=== PATIENT | female | born 1995 | race African-American/Black ===

== ENCOUNTER 2019-02-07 19:27 | Emergency (ER) | payer SELFPAY ==
[2019-02-07 19:41] VITALS: BP 119/79; PULSE 82; TEMP 98.5; BMI 24.7
[2019-02-07] MEDS ORDERED: ONDANSETRON 4 MG/2 ML VIAL IVPUSH ONE (19:51)
[2019-02-07] MEDS ORDERED: SODIUM CHLORIDE 1,000 ML IV STA (19:51)
--- NOTE | 2019-02-07 19:51 | PDOC ---
Rapid Medical Evaluation Chief Complaint: Pain Time Seen by Provider: 02/07/19 19:50 Medical Evaluation: Allergies Allergy/AdvReac Type Severity Reaction Status Date / Time No Known Allergies Allergy Verified 02/07/19 19:41 Vital Signs Temp Pulse Resp BP Pulse Ox 98.5 F 82 16 119/79 100 02/07/19 19:36 02/07/19 19:36 02/07/19 19:36 02/07/19 19:36 02/07/19 19:36 02/07/19 19:50 I have performed a brief in-person evaluation of this patient. The patient presents with a chief complaint of:abd pain, n/v, seen at [facility] Pertinent physical exam findings: vss, epigastric tenderness I have ordered the following: labs, urine, ivf, zofran The patient will proceed to the ED for further evaluation. Discharge Disposition - Diagnosis Abdominal pain Qualifiers: Abdominal location: periumbilical Qualified Code(s): R10.33 - Periumbilical pain Nausea and vomiting Qualifiers: Vomiting type: unspecified Vomiting Intractability: non-intractable Qualified Code(s): R11.2 - Nausea with vomiting, unspecified - Discharge Dispostion Disposition: HOME Condition at time of disposition: Stable - Prescriptions Prescriptions: Ondansetron [Zofran *Odt*] 4 mg SL TID PRN #21 od.tablet PRN Reason: Nausea And/Or Vomiting - Referrals Referrals: [facility] [place] [place] [Provider Group] Nehemias Brown MD [Staff Physician] - - Patient Instructions Printed Discharge Instructions: DI for Vomiting -- Adult Additional Instructions: You were seen in the Emergency Department for evaluation of abdominal pain with nausea and vomiting. Your labs and imaging were unremarkable. Your symptoms are likely due to a viral illness that will resolve within about a week. Review the handout provided at discharge. Follow up with your primary care provider within a week. Avoid heavily flavored foods and spicy foods. Start with water/gatorade sips and advance as tolerated. If you try to incorporate solids and vomit, go back to liquids and try advancing slowly again over several hours. Return to the Emergency Department if you develop fevers/chills, chest pain, trouble breathing, inability to tolerate fluids, blood in your stool/vomit, worsening pain, worsening symptoms, or any new/concerning symptoms. - Post Discharge Activity
--- NOTE | 2019-02-07 20:07 | PDOC ---
History of Present Illness - General Chief Complaint: Pain Stated Complaint: ABD PAIN, VOMITTING Time Seen by Provider: 02/07/19 19:50 - History of Present Illness Initial Comments: The pt is a 23F w/ a history of asthma who presents for evaluation of 2 days of abdominal pain with associated N/V. The pt reports periumbilical, sharp, intermittent, non-radiating abdominal pain that began gradually. It is associated with nausea and NBNB emesis >10x today. She was evaluated at [facility] yesterday where they performed labs and gave Zofran with initial relief, but her symptoms recurred last night/today. She states that she cannot keep any fluids down at home and has not tried anything for her symptoms at home. Pt denies fevers/chills, chest pain, trouble breathing, dysuria, hematuria, vaginal bleeding/discharge, diarrhea, blood in her stool, or changes in sensation. PMH: Asthma PSH: Denies Meds: Denies Allergies: Denies SH: reports history of EtOH and THC but no recent use 02/07/19 20:50 Past History - Past Medical History Allergies/Adverse Reactions: Allergies Allergy/AdvReac Type Severity Reaction Status Date / Time No Known Allergies Allergy Verified 02/07/19 19:41 Home Medications: Ambulatory Orders Ondansetron [Zofran *Odt*] 4 mg SL TID PRN #21 od.tablet 02/07/19 COPD: No - Psycho Social/Smoking Cessation Hx Smoking History: Never smoked Have you smoked in the past 12 months: No Information on smoking cessation initiated: No Hx Alcohol Use: No Drug/Substance Use Hx: No Review of Systems - Review of Systems Able to Perform ROS?: Yes Comments:: GENERAL/CONSTITUTIONAL: No fever or chills. No weakness HEAD, EYES, EARS, NOSE AND THROAT: No change in vision. No change in hearing. No sore throat CARDIOVASCULAR: No chest pain or shortness of breath RESPIRATORY: Denies cough, hemoptysis GASTROINTESTINAL: +N/V; denies C/D GENITOURINARY: No dysuria, frequency, or change in urination MUSCULOSKELETAL: No joint or muscle swelling or pain. No neck or back pain SKIN: No rash NEUROLOGIC: No headache, vertigo, loss of consciousness, or change in strength/ sensation ENDOCRINE: No increased thirst. No abnormal weight change HEMATOLOGIC/LYMPHATIC: No anemia, easy bleeding, or history of blood clots ALLERGIC/IMMUNOLOGIC: No hives or skin allergy 02/07/19 20:07 Is the patient limited Tajik proficient: No *Physical Exam - Vital Signs Last Vital Signs Temp Pulse Resp BP Pulse Ox 98.5 F 82 16 119/79 100 02/07/19 19:36 02/07/19 19:36 02/07/19 19:36 02/07/19 19:36 02/07/19 19:36 - Physical Exam GENERAL: Awake, alert, and oriented to person/place/time, tearful HEAD: No signs of trauma, normocephalic, atraumatic EYES: PERRLA, EOMI, sclera anicteric, conjunctiva clear ENT: Hearing grossly normal, nares patent, oropharynx clear without exudates. Moist mucosa LUNGS: No distress, speaks in full sentences, clear to auscultation bilaterally HEART: Regular rate and rhythm, normal S1 and S2, no murmurs appreciated, peripheral pulses normal and equal bilaterally ABDOMEN: Soft, nonfocal TTP w/o rebound or guarding; normoactive bowel sounds EXTREMITIES: Normal inspection, Normal range of motion, no edema. No clubbing or cyanosis NEUROLOGICAL: Cranial nerves II through XII grossly intact. Normal speech, no focal sensorimotor deficits SKIN: Warm, Dry 02/07/19 20:07 ED Treatment Course - LABORATORY CBC & Chemistry Diagram: 02/07/19 20:56 02/07/19 20:55 Medical Decision Making - Medical Decision Making The pt is a 23F w/ a history of asthma who presents for evaluation of 2 days of abdominal pain with associated N/V. ED Course CMP, CBC, Lipase, Serum Preg, Mg UDS IVF, Zofran, Ofirmev, Maalox for symptomatic relief 02/07/19 21:00 POCUS RUQ w/o GB sludge/stones, GBW and CBD wnl, no pericholecystic fluid No leukocytosis No anemia 02/07/19 21:33 Lytes unremarkable LFTs unremarkable Lipase wnl 02/07/19 21:41 Serum preg neg 02/07/19 22:33 Utox positive for THC, but denies recent use Pt reports persistent nausea, will give Reglan 10mg IVPB once 02/07/19 23:26 Pt reports feeling improved at this time Will PO challenge Rx for Zofran sent to pt's pharmacy Plan for D/C w/ PCP f/u Discharge instructions and return precautions given Patient in agreement and verbalized understanding Dispo: Home 02/08/19 01:06 Discharge - Discharge Information Problems reviewed: Yes Clinical Impression/Diagnosis: Abdominal pain Qualifiers: Abdominal location: periumbilical Qualified Code(s): R10.33 - Periumbilical pain Nausea and vomiting Qualifiers: Vomiting type: unspecified Vomiting Intractability: non-intractable Qualified Code(s): R11.2 - Nausea with vomiting, unspecified Condition: Stable - Admission No - Additional Discharge Information Prescriptions: Ondansetron [Zofran *Odt*] 4 mg SL TID PRN #21 od.tablet PRN Reason: Nausea And/Or Vomiting - Follow up/Referral Referrals: [facility] [place] [facility] [place] [Provider Group] Nehemias Brown MD [Staff Physician] - - Patient Discharge Instructions Patient Printed Discharge Instructions: DI for Vomiting -- Adult Additional Instructions: You were seen in the Emergency Department for evaluation of abdominal pain with nausea and vomiting. Your labs and imaging were unremarkable. Your symptoms are likely due to a viral illness that will resolve within about a week. Review the handout provided at discharge. Follow up with your primary care provider within a week. Avoid heavily flavored foods and spicy foods. Start with water/gatorade sips and advance as tolerated. If you try to incorporate solids and vomit, go back to liquids and try advancing slowly again over several hours. Return to the Emergency Department if you develop fevers/chills, chest pain, trouble breathing, inability to tolerate fluids, blood in your stool/vomit, worsening pain, worsening symptoms, or any new/concerning symptoms. - Post Discharge Activity
[2019-02-07] MEDS ORDERED: MAG HYDROX/AL HYDROX/SIMETH -MYLANTA- ORAL SUSPENSION PO ONE (20:26)
[2019-02-07] MEDS ORDERED: ACETAMINOPHEN 1000 MG/100 ML VIAL (NON FORMULARY) IVPB ONE (20:26)
[2019-02-07 21:10] LABS: BASO % 1.2 % (0-2.0); EOS % 0.3 % (0-4.5); HEMATOCRIT 40.3 % (32.4-45.2); HEMOGLOBIN 12.9 GM/dL (10.7-15.3); LYMPH % 30.2 % (8-40); MCH 27.3 pg (25.7-33.7); MEAN CELL VOLUME 85.2 fl (80-96); NEUT % 60.3 % (42.8-82.8); RBC 4.73 M/mm3 (3.60-5.2); RDW 14.3 % (11.6-15.6); WHITE BLOOD COUNT 7.1 K/mm3 (4.0-10.0)
[2019-02-07] MEDS ORDERED: FAMOTIDINE 20 MG/50 ML IVPB 20 MG/50 ML MG IVPB ONE ×2 (21:15→21:35)
--- NOTE | 2019-02-07 21:26 | PDOC ---
Documentation entered by Yissel Castro SCRIBE, acting as scribe for Laureen Garcia DO. Laureen Garcia DO: This documentation has been prepared by the rosemarie, Yissel Castro SCRIBE, under my direction and personally reviewed by me in its entirety. I confirm that the documentation accurately reflects all work, treatment, procedures, and medical decision making performed by me. Attending Attestation - Resident Resident Name: Yobany Mills - ED Attending Attestation I have performed the following: I have examined & evaluated the patient, The case was reviewed & discussed with the resident, I agree w/resident's findings & plan, Exceptions are as noted - HPI HPI: 02/07/19 21:12 Patient is a 23 year old female with a significant PMH of asthma who presents to the ED with 2 days of abdominal pain. The pt describes the pain as sharp, intermittent, non-radiating abdominal pain with associated NBNB nausea and vomiting. As per patient, she states having 10 episodes of NBNB vomiting and is able to hold down any fluids. She was evaluated at [facility] yesterday where she was given a full work up and was given Zofran with alleviation of symptoms, but her symptoms recurred last night/today. She denies recent fevers, chills, headache or dizziness. She denies recent nausea, vomiting, diarrhea or constipation. She denies recent dysuria, frequency, urgency or hematuria. She denies recent chest pain or shortness of breath. - Physicial Exam PE: 02/07/19 21:22 Gen: aaox3, nad heart: +s1s2 reg lungs: cta b/l abd: soft, no focal ttp , no rebound or guarding, +bs, no vomiting during exam ext: no c/c/e - Medical Decision Making 02/07/19 21:23 a/p: 23yo female with n/v x 2 days -states over 10 episodes of n/v -pt states no new marijuana use -pt states seen at [facility] yesterday and given antinausea meds but states still with vomitus today -states specks of blood, but feels her throat is raw -denies diarrhea -will send labs, ua -will hydrate, zofran, pepcid, gi cocktail -pt is nontoxic in appearance -no black tarry stool 02/07/19 23:32 pt with marijuana in urine 02/07/19 23:33 labs reviewed pt appears dehydrated on ua, ivf hydration running 02/08/19 00:50 pt tolerated po intake
[2019-02-07 21:27] LABS: MAGNESIUM 2.3 mg/dL (1.8-2.4)
[2019-02-07] MEDS ORDERED: MAG HYDROX/AL HYDROX/SIMETH 30 ML UNIT-DOSE CUP ONE (21:35)
[2019-02-07] MEDS ORDERED: ACETAMINOPHEN INJECTION 100 ML IVPB ONE (21:35)
[2019-02-07] MEDS ORDERED: ONDANSETRON 4 MG/2 ML VIAL ONE (21:35)
[2019-02-07 21:40] LABS: ALBUMIN 4.2 g/dl (3.4-5.0); BILIRUBIN,TOTAL 0.5 mg/dL (0.2-1); BLOOD UREA NITROGEN 11.9 mg/dL (7-18); CALCIUM 9.9 mg/dL (8.5-10.1); CREATININE 0.7 mg/dL (0.55-1.3); POTASSIUM 3.4 mmol/L (3.5-5.1); TOT PROT 8.6 g/dl (6.4-8.2)
[2019-02-07 22:49] LABS: PLATELET ESTIMATE NORMAL
[2019-02-07 22:51] LABS: MEAN PLT VOLUME 9.3 fl (7.5-11.1); PLATELET COUNT 288 K/MM3 (134-434)
[2019-02-07 23:00] LABS: EPI CELLS 7.2 /HPF (0-5/HPF); HYALINE CASTS 16 /lpf (0-8); PH,URINE 8.5 (5.0-8.0); URINE APPEARANCE CLEAR; URINE BACTERIA 69.2 /hpf (NEGATIVE); URINE BILIRUBIN NEGATIVE (NEGATIVE); URINE COLOR DK YELLOW; URINE GLUCOSE (UA) NEGATIVE (NEGATIVE); URINE KETONE 2+ (NEGATIVE); URINE LEUK ESTERASE NEGATIVE (NEGATIVE); URINE NITRITE NEGATIVE (NEGATIVE); URINE PROTEIN 1+ (NEGATIVE); URINE RBC 1 /hpf (0-4); URINE WBC 3 /hpf (0-5)
[2019-02-07 23:09] LABS: COCAINE, UR NEGATIVE ng/ml (CUTOFF=300); METHADONE, UR NEGATIVE ng/ml (CUTOFF=300); OPIATES, URI NEGATIVE ng/ml (CUTOFF=300); PHENCYCLIDINE,URINE NEGATIVE ng/ml (CUTOFF=25); URINE AMPHETAMINES NEGATIVE ng/ml (CUTOFF=500); URINE BARBITURATES NEGATIVE ng/ml (CUTOFF=200); URINE BENZODIAZEPINES NEGATIVE ng/ml (CUTOFF=200)
[2019-02-07] MEDS ORDERED: METOCLOPRAMIDE HCL INJECTION 10 MG/2 ML VIAL IVPB ONE (23:55)
[2019-02-08] MEDS ORDERED: METOCLOPRAMIDE HCL INJECTION 10 MG/2 ML VIAL ONE (00:04)
== END 2019-02-08 02:14 | disposition home or self-care (01) ==
LOC: JER 19:27
PROC: 3E033GC Introduction of Other Therapeutic Substance into Peripheral Vein, Percutaneous Approach (ICD-10-PCS; principal; 2019-02-07)
PROC: 3E033NZ Introduction of Analgesics, Hypnotics, Sedatives into Peripheral Vein, Percutaneous Approach (ICD-10-PCS; 2019-02-07)
PROC: 3E033GC Introduction of Other Therapeutic Substance into Peripheral Vein, Percutaneous Approach (ICD-10-PCS; 2019-02-07)
DX: R10.33 Periumbilical pain (principal); R11.2 Nausea with vomiting, unspecified
CPT/HCPCS: 36415; 80053; 80307; 81003; 83690; 83735; 84703; 85025; 99282-25; J0131; J7030

== ENCOUNTER 2019-11-02 19:31 | Emergency (ER) | payer OTHER ==
[2019-11-02 19:36] VITALS: BP 127/86; PULSE 78; TEMP 98; BMI 27.6
--- OUTSIDE RECORDS SUMMARY | 2019-11-02 19:45 | XMS ---
:1995 Author Organization [facility] Care Team Providers Name Role Phone ED STAFF PHYSICIANKEYONNA Unavailable Unavailable ED STAFF PHYSICIAN, STAFF Unavailable Unavailable Re-disclosure Warning The records that you are about to access may contain information from federally- assisted alcohol or drug abuse programs. If such information is present, then the following federally mandated warning applies: This information has been disclosed to you from records protected by federal confidentiality rules (42 CFR part 2). The federal rules prohibit you from making any further disclosure of this information unless further disclosure is expressly permitted by the written consent of the person to whom it pertains or as otherwise permitted by 42 CFR part 2. A general authorization for the release of medical or other information is NOT sufficient for this purpose. The Federal rules restrict any use of the information to criminally investigate or prosecute any alcohol or drug abuse patient.The records that you are about to access may contain highly sensitive health information, the redisclosure of which is protected by Article 27-F of the [facility] Public Health law. If you continue you may haveaccess to information: Regarding HIV / AIDS; Provided by facilities licensed or operated by the [facility] Office of Mental Health; or Provided by the [facility] Office for People With Developmental Disabilities. If such information is present, then the following [facility] mandated warning applies: This information has been disclosed to you from confidential records which are protected by state law. State law prohibits you from making any further disclosure of this information without the specific written consent of the person to whom it pertains, or as otherwise permitted by law. Any unauthorized further disclosure in violation of state law may result in a fine or usp sentence or both. A general authorization for the release of medical or other information is NOT sufficient authorization for further disclosure. Encounters Encounter Providers Location Date Indications Data Source(s ) Emergency Attender: KEYONNA ED H 02/06/2019 Wally Sosa STAFF 10:10:00 AM EST Medical C nadia PHYSICIANAttender: - 02/06/2019 STAFF ED STAFF 04:31:00 PM EST PHYSICIANAdmitter: KEYONNA ED STAFF PHYSICIANReferrer: STAFF ED STAFF PHYSICIAN Patient discharged. Emergency H 10/09/2018 08:45:00 PM EDT - 019 [facility] 11:57:00 PM EDT Patient discharged. Insurance Providers Payer name Policy type Policy ID Covered Covered republican's Policy P alfredo / Coverage republican ID relationship to [employer] Inf ormation type [employer] MEDICAID [id number] SP [id number] SELF PAY SP INSURANCE [place] O [id number] 01 [id number] HEALTH PLAN [place] O [id number] 01 [id number] HEALTH PLAN [facility] O [id number] Problems, Conditions, and Diagnoses Code Display Name Description Problem Type Effective Data Sour ce(s) Dates J45.909 Unspecified UNSPECIFIED Diagnosis 02/06/2019 [facility] asthma, ASTHMA, 10:10:00 AM Medical Cent[facility] r uncomplicated UNCOMPLICATED EST R10.9 Unspecified UNSPECIFIED Diagnosis 02/06/2019 [facility] abdominal pain ABDOMINAL PAIN 10:10:00 AM Medic al Center EST R11.2 Nausea with NAUSEA WITH Diagnosis 02/06/2019 [place] [facility] vomiting, VOMITING, 10:10:00 AM Medical Cente r unspecified UNSPECIFIED EST R11.10 Vomiting, VOMITING, Diagnosis 02/06/2019 [facility] unspecified UNSPECIFIED 10:10:[address] EST N64.52 Nipple discharge NIPPLE DISCHARGE Diagnosis 10/09/2018 sherice Ian 08:45:00 PM Medical Cente r EDT Results ID Date Data Source [facility].[id number] 02/06/2019 11:04:00 AM EST [facility] Name Value Range Interpretation Description Data Sup porting Code Source(s) Document(s ) Potassium <content [facility] [Moles/volume styleCode="Bold Medical ] in Serum or ">Potassium Center Plasma </content>Test not performed. MEQ/L (Reference Range: not available)
ID Date Data Source Liver 02/06/2019 10:35:00 AM EST [facility] Profile.[id number] Name Value Range Interpretation Description Data Sup porting Code Source(s) Document(s ) Bilirubin.total 0.2-1.3 <content [facility] [Mass/volume] in styleCode="Bold"> [facility] Serum or Plasma Bilirubin Total Medical </content>1.1 Center MG/DL<content styleCode="Italic s"> (0.2-1.3 MG/DL)</content> Aspartate 14-36 Above high <content [facility] aminotransferase normal styleCode="Bold"> [facility] [Enzymatic Aspartate Medical activity/volume] Aminotransferase Center in Serum or Plasma (AST) </content>37 IU/L H<content styleCode="Italic s"> (14-36 IU/L)</content> Alkaline 38-126 <content [facility] phosphatase styleCode="Bold"> [facility] [Enzymatic Alkaline Medical activity/volume] Phosphatase (ALP) Cente r in Serum or Plasma </content>59 IU/L<content styleCode="Italic s"> (38-126 IU/L)</content> Alanine 7-30 <content [facility] aminotransferase styleCode="Bold"> [facility] [Enzymatic Alanine Medical activity/volume] Aminotransferase Center in Serum or Plasma (ALT) </content>17 IU/L<content styleCode="Italic s"> (7-30 IU/L)</content> Albumin 3.5-5.0 Above high <content [facility] [Mass/volume] in normal styleCode="Bold"> [facility] Serum or Plasma Albumin Medical </content>5.4 Center G/DL H<content styleCode="Italic s"> (3.5-5.0 G/DL)</content> ID Date Data Source HematologyRou.[id number] 02/06/2019 10:35:00 AM EST [facility] 0500 Name Value Range Interpretation Description Data Sup porting Code Source(s) Document(s ) Hematocrit 36.0-46. <content [facility] [Volume 0 styleCode="Bold [facility] Fraction] of ">Hematocrit Medical Blood by </content>40.1 Center Automated count %<content styleCode="Ital ics"> (36.0-46.0 %)</content> Hemoglobin 12.3-16. <content [facility] [Mass/volume] in 0 styleCode="Bold Ian Blood ">Hemoglobin Medical </content>12.7 Center G/DL<content styleCode="Ital ics"> (12.3-16.0 G/DL)</content> Erythrocytes 4.0-5.1 <content [facility] [#/volume] in styleCode="Bold Ian Blood by ">Red Blood Medical Automated count Cell Count Center </content>4.68 MCUMM<content styleCode="Ital ics"> (4.0-5.1 MCUMM)</content > Leukocytes 4.4-11.0 <content [facility] [#/volume] in styleCode="Bold [facility] Blood by ">White Blood Medical Automated count Cell Count Center </content>10.20 KCUMM<content styleCode="Ital ics"> (4.4-11.0 KCUMM)</content > Erythrocyte mean 26.0-34. <content [facility] corpuscular 0 styleCode="Bold Ian hemoglobin ">Mean Medical [Entitic mass] Corposcular Center by Automated Hemoglobin count </content>27.1 PG<content styleCode="Ital ics"> (26.0-34.0 PG)</content> Platelets 130-400 <content [facility] [#/volume] in styleCode="Bold [facility] Blood by ">Platelet Medical Automated count Count Center </content>275 KCUMM<content styleCode="Ital ics"> (130-400 KCUMM)</content > Erythrocyte 11.5-14. <content [facility] distribution 5 styleCode="Bold [facility] width [Ratio] by ">Red Cell Medical Automated count Distribution Center Width </content>13.6 %<content styleCode="Ital ics"> (11.5-14.5 %)</content> Erythrocyte mean 80.0-100 <content [facility] corpuscular .0 styleCode="Bold Ian volume [Entitic ">Mean Medical volume] by Corpuscular Center Automated count Volume </content>85.7 FL<content styleCode="Ital ics"> (80.0-100.0 FL)</content> Erythrocyte mean 32.0-37. Below low normal <content [facility] corpuscular 0 styleCode="Bold [facility] hemoglobin ">Mean Corpus. Medical concentration Hgb Center [Mass/volume] by Concentration Automated count (MCHC) </content>31.7 G/DL L<content styleCode="Ital ics"> (32.0-37.0 G/DL)</content> Lymphocytes 24.0-44. Below low normal <content [facility] [#/volume] in 0 styleCode="Bold [facility] Blood by ">Lymphocyte Medical Automated count </content>12.3 Center % L<content styleCode="Ital ics"> (24.0-44.0 %)</content> Neutrophils 36-66 Above high <content [facility] [#/volume] in normal styleCode="Bold [facility] Blood by ">Neutrophil Medical Automated count </content>84.0 Center % H<content styleCode="Ital ics"> (36-66 %)</content> UNK 1.0-4.8 <content [facility] styleCode="Bold Ian ">Lymphocyte Medical Count Center </content>1.25 KCUMM<content styleCode="Ital ics"> (1.0-4.8 KCUMM)</content > Platelet mean 8.0-11.0 <content [facility] volume [Entitic styleCode="Bold Ian volume] in Blood ">Mean Platelet Medical by Automated Volume Center count </content>10.9 FL<content styleCode="Ital ics"> (8.0-11.0 FL)</content> UNK 1.6-7.3 Above high <content [facility] normal styleCode="Bold Ian ">Neutrophil Medical Count Center </content>8.57 KCUMM H<content styleCode="Ital ics"> (1.6-7.3 KCUMM)</content > Basophils 0.0-1.0 <content [facility] [#/volume] in styleCode="Bold Ian Blood by ">Basophil Medical Automated count </content>0.3 Center %<content styleCode="Ital ics"> (0.0-1.0 %)</content> UNK 0.2-0.9 <content [facility] styleCode="Bold Ian ">Monocyte Medical Count Center </content>0.32 KCUMM<content styleCode="Ital ics"> (0.2-0.9 KCUMM)</content > Monocytes 3.0-10.0 <content [facility] [#/volume] in styleCode="Bold Ian Blood by ">Monocyte Medical Automated count </content>3.1 Center %<content styleCode="Ital ics"> (3.0-10.0 %)</content> UNK 0.0-0.3 <content [facility] styleCode="Bold Ian ">Basophil Medical Count Center </content>0.03 KCUMM<content styleCode="Ital ics"> (0.0-0.3 KCUMM)</content > Eosinophils 0-5.0 <content [facility] [#/volume] in styleCode="Bold Ian Blood by ">Eosinophil Medical Automated count </content>0.0 Center %<content styleCode="Ital ics"> (0-5.0 %)</content> UNK 0.0-0.6 <content [facility] styleCode="Bold Ian ">Eosinophil Medical Count Center </content>0.00 KCUMM<content styleCode="Ital ics"> (0.0-0.6 KCUMM)</content > UNK 0-0.1 <content [facility] styleCode="Bold Ian ">Immature Medical Granulocyte Center Count </content>0.03 KCUMM<content styleCode="Ital ics"> (0-0.1 KCUMM)</content > UNK 0 <content [facility] styleCode="Bold Ian ">Nucleated Red Medical Blood Cell Center </content>0.0 /100<content styleCode="Ital ics"> (0 /100)</content> UNK 0.0 <content [facility] styleCode="Bold Ian ">Nucleated Red Medical Blood Cell Center Count </content>0.00 KCUMM<content styleCode="Ital ics"> (0.0 KCUMM)</content > UNK < 1 <content [facility] styleCode="Bold Ian ">Immature Medical Granulocyte Center Ratio </content>0.3 %<content styleCode="Ital ics"> (< 1 %)</content> ID Date Data Source GFR(Creatinine).[id number] 02/06/2019 10:35:00 AM EST [facility] 0-0500 Name Value Range Interpretation Code Description Data Evie rce(s) Supporting Document(s ) UNK > 60 <content [facility] styleCode="Bold"> Medical Cent er EGFR </content>161 GFR<content styleCode="Italic s"> (> 60 GFR)</content> ID Date Data Source MROUTINECCDA.[id number] 02/06/2019 10:35:00 AM EST [facility] -0500 Name Value Range Interpretation Description Data Sup porting Code Source(s) Document(s ) Protein 6.3-8.2 Above high normal <content [place] [facility] [Mass/volum styleCode="Bold Medical e] in Serum ">Total Protein Center or Plasma </content>9.6 G/DL H<content styleCode="Ital ics"> (6.3-8.2 G/DL)</content> UNK >= 1.0 <content [facility] styleCode="Bold Medical ">AG Ratio Center </content>1.3 <content styleCode="Ital ics"> (>= 1.0 )</content> UNK 2.3-3.5 Above high normal <content [place] [facility] styleCode="Bold Medical ">Globulin Center </content>4.2 G/DL H<content styleCode="Ital ics"> (2.3-3.5 G/DL)</content> Lipase 23-300 <content [facility] [Enzymatic styleCode="Bold Medical activity/vo ">Lipase Center lume] in </content>105 Serum or IU/L<content Plasma styleCode="Ital ics"> (23-300 IU/L)</content> ID Date Data Source [facility].[id number] 02/06/2019 10:35:00 AM EST [facility] Name Value Range Interpretation Description Data Sup porting Code Source(s) Document(s ) Chloride 98-107 <content [facility] [Moles/volume] in styleCode="Bold"> [facility] Serum or Plasma Chloride Medical </content>104 Center MEQ/L<content styleCode="Italic s"> (98-107 MEQ/L)</content> Potassium <content [facility] [Moles/volume] in styleCode="Bold"> [facility] Serum or Plasma Potassium Medical </content>Test Center not performed. MEQ/L (Reference Range: not available)
UNK 7-17 <content [facility] styleCode="Bold"> [facility] BUN </content>11 Medical MG/DL<content Center styleCode="Italic s"> (7-17 MG/DL)</content> Sodium 137-145 <content [facility] [Moles/volume] in styleCode="Bold"> [facility] Serum or Plasma Sodium Medical </content>140 Center MEQ/L<content styleCode="Italic s"> (137-145 MEQ/L)</content> Carbon dioxide, 22-30 Below low <content [facility] total normal styleCode="Bold"> [facility] [Moles/volume] in Carbon Dioxide Medical Serum or Plasma </content>21 Center MEQ/L L<content styleCode="Italic s"> (22-30 MEQ/L)</content> Glucose 74-106 Above high <content [facility] [Mass/volume] in normal styleCode="Bold"> [facility] Serum or Plasma Glucose Medical </content>115 Center MG/DL H<content styleCode="Italic s"> (74-106 MG/DL)</content> Aspartate 14-36 Above high <content [facility] aminotransferase normal styleCode="Bold"> [facility] [Enzymatic Aspartate Medical activity/volume] Aminotransferase Center in Serum or Plasma (AST) </content>37 IU/L H<content styleCode="Italic s"> (14-36 IU/L)</content> Creatinine 0.5-1.3 <content [facility] [Mass/volume] in styleCode="Bold"> [facility] Serum or Plasma Creatinine Medical </content>0.5 Center MG/DL<content styleCode="Italic s"> (0.5-1.3 MG/DL)</content> UNK > 60 <content [facility] styleCode="Bold"> [facility] EGFR Medical </content>161 Center GFR<content styleCode="Italic s"> (> 60 GFR)</content> Calcium 8.4-10. Above high <content [facility] [Mass/volume] in 2 normal styleCode="Bold"> [facility] Serum or Plasma Calcium Medical </content>10.8 Center MG/DL H<content styleCode="Italic s"> (8.4-10.2 MG/DL)</content> Albumin 3.5-5.0 Above high <content [facility] [Mass/volume] in normal styleCode="Bold"> [facility] Serum or Plasma Albumin Medical </content>5.4 Center G/DL H<content styleCode="Italic s"> (3.5-5.0 G/DL)</content> Alanine 7-30 <content [facility] aminotransferase styleCode="Bold"> [facility] [Enzymatic Alanine Medical activity/volume] Aminotransferase Center in Serum or Plasma (ALT) </content>17 IU/L<content styleCode="Italic s"> (7-30 IU/L)</content> Bilirubin.total 0.2-1.3 <content [facility] [Mass/volume] in styleCode="Bold"> [facility] Serum or Plasma Bilirubin Total Medical </content>1.1 Center MG/DL<content styleCode="Italic s"> (0.2-1.3 MG/DL)</content> Alkaline 38-126 <content [facility] phosphatase styleCode="Bold"> [facility] [Enzymatic Alkaline Medical activity/volume] Phosphatase (ALP) Cente r in Serum or Plasma </content>59 IU/L<content styleCode="Italic s"> (38-126 IU/L)</content> ID Date Data Source Urinalysis.[id number] 10/09/2018 10:40:00 PM EDT [facility] 0 Name Value Range Interpretation Description Data Sup porting Code Source(s) Document(s ) Color of Urine YELLOW <content [facility] styleCode="[facility] d">Color, Medical Urine Center </content>YELL OW <content styleCode="Kenisha lics"> (YELLOW )</content> Ketones NEGATIVE <content [facility] [Mass/volume] styleCode="Sarah Sosa in Urine by d">Urine Medical Test strip Ketone Center </content>NEGA TIVE MG/DL<content styleCode="Kenisha lics"> (NEGATIVE MG/DL)</conten t> UNK NEGATIVE <content [facility] styleCode="[facility] d">Urine Medical Bilirubin Center </content>NEGA TIVE <content styleCode="Kenisha lics"> (NEGATIVE )</content> UNK CLEAR <content [facility] styleCode="[facility] d">Urine Medical Clarity Center </content>Sl CLOUDY <content styleCode="Kenisha lics"> (CLEAR )</content> Specific 1.015-1.02 <content [facility] gravity of 5 styleCode="Sarah Sosa Urine by Test d">Urine Medical strip Specific Center [place] </content>1.02 0 <content styleCode="Kenisha lics"> (1.015-1.025 )</content> Glucose NEGATIVE <content [facility] [Mass/volume] styleCode="Sarah Sosa in Urine by d">Urine Medical Test strip Glucose Center </content>NEGA TIVE MG/DL<content styleCode="Kenisha lics"> (NEGATIVE MG/DL)</conten t> Nitrite NEGATIVE <content [facility] [Presence] in styleCode="Sarah Sosa Urine by Test d">Urine Medical strip Nitrite Center </content>NEGA TIVE <content styleCode="Kenisha lics"> (NEGATIVE )</content> Protein NEGATIVE <content [facility] [Mass/volume] styleCode="[facility] in Urine by d">Urine Medical Test strip Protein Center </content>NEGA TIVE MG/DL<content styleCode="Kenisha lics"> (NEGATIVE MG/DL)</conten t> Hemoglobin NEGATIVE <content [facility] [Presence] in styleCode="Sarah Sosa Urine by Test d">Urine Blood Medical strip </content>NEGA Center TIVE <content styleCode="Kenisha lics"> (NEGATIVE )</content> Leukocyte NEGATIVE <content [facility] esterase styleCode="Sarah Ian [Presence] in d">Urine Medical Urine by Test Leukocyte Center strip </content>NEGA TIVE <content styleCode="Kenisha lics"> (NEGATIVE )</content> pH of Urine by 4.5-8.0 <content [facility] Test strip styleCode="Sarah Ian d">Urine pH Medical </content>6.0 Center <content styleCode="Kenisha lics"> (4.5-8.0 )</content> Urobilinogen 0.2-1.0 <content [facility] [Units/volume] styleCode="Sarah Ian in Urine by d">Urine Medical Test strip Urobilinogen Center </content>0.2 MG/DL<content styleCode="Kenisha lics"> (0.2-1.0 MG/DL)</conten t> UNK 0-3 <content [facility] styleCode="Sarah Ian d">Urine Red Medical Blood Cell Center </content>0-3 HPF<content styleCode="Kenisha lics"> (0-3 HPF)</content> UNK 0-3 <content [facility] styleCode="Sarah Ian d">Urine White Medical Blood Cell Center </content>0-3 HPF<content styleCode="Kenisha lics"> (0-3 HPF)</content> UNK <content [facility] styleCode="Sarah Ian d">Epithelial Medical Cell Center </content>5 - 10 LPF (Reference Range: not available)<br/ > UNK NONE SEEN <content [facility] styleCode="Sarah Ian d">Urine Mucus Medical </content>MODE Center RATE LPF<content styleCode="Kenisha lics"> (NONE SEEN LPF)</content> Procedure Social History Code Duration Value Status Description Data Source(s ) Smoking 02/06/2019 Denies Ever completed Denies Ever Smoked [facility] 10:29:00 AM EST Smoked Medical C enter Smoking 02/06/2019 Denies Ever completed Denies Ever Smoked [facility] 10:14:00 AM EST Smoked Medical C enter Smoking 02/06/2019 Denies Ever completed Denies Ever Smoked [facility] 10:12:00 AM EST Smoked Medical C enter Smoking 10/09/2018 Denies Ever completed Denies Ever Smoked [facility] 10:22:00 PM EDT Smoked Medical C enter Smoking 10/09/2018 Denies Ever completed Denies Ever Smoked [facility] 09:02:00 PM EDT Smoked Medical C enter Smoking 10/09/2018 Denies Ever completed Denies Ever Smoked [facility] 08:56:00 PM EDT Smoked Medical C enter Vital Signs ID Date Data Source UNK Name Value Range Interpretation Code Description Data Source(s) Body temperature 36.108649 36.811341 [facility] Respiratory rate 18 /min 18 /min [facility] Oxygen saturation 97 % 97 % [facility] in [facility] by Pulse oximetry Heart rate 85 /min 85 /min [facility] Diastolic blood 75 mm[Hg] 75 mm[Hg] [facility] Systolic blood 132 mm[Hg] 132 mm[Hg] [facility] Body weight 72.490453 kg 72.655940 kg [facility] Body temperature 36.804431 36.638721 [facility] Respiratory rate 18 /min 18 /min [facility] Oxygen saturation 97 % 97 % [facility]ph[facility] in [facility] by Pulse oximetry Heart rate 84 /min 84 /min [facility] Body height 175.478693 175.351446 cm [facility] Medical [place] Diastolic blood 82 mm[Hg] 82 mm[Hg] [facility] Center Systolic blood 147 mm[Hg] 147 mm[Hg] [facility] Body mass index 23.6 kg/m2 23.6 kg/m2 [facility] (BMI) [Ratio] Medical [facility] ter Body temperature 36.141450 36.483189 [facility] Respiratory rate 17 /min 17 /min [facility] Oxygen saturation 100 % 100 % [facility]ph[facility] in [facility] by Pulse oximetry Heart rate 109 /min 109 /min [facility] Diastolic blood 75 mm[Hg] 75 mm[Hg] [facility] Systolic blood 134 mm[Hg] 134 mm[Hg] [facility] pressure Medical Center
--- NOTE | 2019-11-02 20:43 | PDOC ---
History of Present Illness - General Chief Complaint: Pain Stated Complaint: ABDOMINAL PAIN Time Seen by Provider: 11/02/19 20:42 - History of Present Illness Initial Comments: 11/03/19 01:44 abdominal pain, vomiting Past History - Medical History Allergies/Adverse Reactions: Allergies Allergy/AdvReac Type Severity Reaction Status Date / Time No Known Allergies Allergy Verified 11/02/19 19:36 Home Medications: Ambulatory Orders Ondansetron [Zofran *Odt*] 4 mg SL TID PRN #21 od.tablet 02/07/19 COPD: No - Reproductive History Is Patient Now?: No - Psycho-Social/Smoking History Smoking History: Current every day smoker Have you smoked in the past 12 months: No Information on smoking cessation initiated: No - Substance Abuse Hx (Audit-C & DAST Scrn) In the last yr the pt used illegal drug/Rx for NonMed reason: Yes Score: Yes response is considered Positive: 1 Screen Result (Positive result requires Nsg. DAST-10): Positive *Physical Exam - Vital Signs Last Vital Signs Temp Pulse Resp BP Pulse Ox 98 F 78 18 127/86 100 11/02/19 19:32 11/02/19 19:32 11/02/19 19:32 11/02/19 19:32 11/02/19 19:32 ED Treatment Course - LABORATORY CBC & Chemistry Diagram: 11/02/19 21:22 11/02/19 21:22 Discharge - Discharge Information Problems reviewed: Yes Clinical Impression/Diagnosis: Vomiting Condition: Fair Disposition: HOME - Follow up/Referral - Patient Discharge Instructions Patient Printed Discharge Instructions: DI for Vomiting -- Adult Additional Instructions: You were seen in the ER for complaints of vomiting Your labwork and CT were negative Please avoid marijuana use and see your Primary Care doctor within 1 week. Return to the ER if you experience worsening abdominal pain, fevers or any other concerning symptoms. - Post Discharge Activity
[2019-11-02] MEDS ORDERED: FAMOTIDINE 20 MG/50 ML IVPB 20 MG/50 ML MG IVPB ONE ×2 (20:52→21:23)
[2019-11-02] MEDS ORDERED: MAG HYDROX/AL HYDROX/SIMETH -MYLANTA- ORAL SUSPENSION PO ONE (20:52)
--- NOTE | 2019-11-02 20:55 | PDOC ---
Attending Attestation - Resident Resident Name: Olga Alonso - ED Attending Attestation I have performed the following: I have examined & evaluated the patient, The case was reviewed & discussed with the resident, I agree w/resident's findings & plan - HPI HPI: 11/03/19 01:44 Pt comes with nausea and vomiting and abdominal pain. - Physicial Exam PE: 11/03/19 01:45 See resident exam afebrile VSS abd soft NT ND right flank pain; RUQ pain Pt has bilious vomiting normal neuro exam No C/C/E - Medical Decision Making 11/03/19 01:44 Patient Name: NEIL STRATTON THIS IS A PRELIMINARY REPORT DATE OF SERVICE: 2019-11-03 00:53:32 IMAGES: 454 EXAM: SPIRAL- RENAL-STONE CT HISTORY: Vomiting and abdominal pain COMPARISON: None. FINDINGS: Mild hepatomegaly No gallstones No evidence of nephrolithiasis, ureterolithiasis, or obstructive uropathy No evidence of intestinal obstruction, perforation, free fluid, colitis, pancreatitis, appendicitis, acute diverticular disease, or an intra-abdominal or pelvic abscess Umbilical piercing. The osseous structures are normal IMPRESSION: 1. No acute intra-abdominal or pelvic findings Discharge - Discharge Information Problems reviewed: Yes Clinical Impression/Diagnosis: Vomiting Condition: Fair Disposition: HOME - Additional Discharge Information Prescriptions: Ondansetron HCl [Zofran] 4 mg SL BID #8 tablet - Follow up/Referral - Patient Discharge Instructions Patient Printed Discharge Instructions: DI for Vomiting -- Adult Additional Instructions: You were seen in the ER for complaints of vomiting Your labwork and CT were negative Please avoid marijuana use and see your Primary Care doctor within 1 week. Return to the ER if you experience worsening abdominal pain, fevers or any other concerning symptoms. - Post Discharge Activity
[2019-11-02] MEDS ORDERED: SODIUM CHLORIDE 1,000 ML IV SCH (21:00)
[2019-11-02] MEDS ORDERED: MAG HYDROX/AL HYDROX/SIMETH 30 ML UNIT-DOSE CUP ONE (21:23)
[2019-11-02 21:43] LABS: BASO % 0.7 % (0-2.0); EOS % 0.1 % (0-4.5); HEMATOCRIT 36.2 % (32.4-45.2); HEMOGLOBIN 11.5 GM/dL (10.7-15.3); LYMPH % 22.5 % (8-40); MCH 26.9 pg (25.7-33.7); MCHC 31.7 g/dl (32.0-36.0); MEAN CELL VOLUME 84.7 fl (80-96); MEAN PLT VOLUME 8.9 fl (7.5-11.1); NEUT % 69.7 % (42.8-82.8); PLATELET COUNT 296 K/MM3 (134-434); RBC 4.27 M/mm3 (3.60-5.2); WHITE BLOOD COUNT 10.3 K/mm3 (4.0-10.0)
[2019-11-02 22:00] LABS: ALBUMIN 3.6 g/dl (3.4-5.0); ALK PHOS 62 U/L (45-117); ANION GAP 5 MMOL/L (8-16); BILIRUBIN,TOTAL 0.4 mg/dL (0.2-1); CHLORIDE 106 mmol/L (98-107); CO2 28 mmol/L (21-32); CREATININE 0.5 mg/dL (0.55-1.3); GLUCOSE,RANDOM 90 mg/dL (74-106); POTASSIUM 3.7 mmol/L (3.5-5.1); SGOT/AST 18 U/L (15-37); SGPT/ALT 19 U/L (13-61); SODIUM 139 mmol/L (136-145); TOT PROT 7.8 g/dl (6.4-8.2)
[2019-11-02] MEDS ORDERED: morphine CARPU-JECT 2 MG/1 ML DISP.SYRIN IVPUSH ONE (22:28)
[2019-11-02] MEDS ORDERED: MORPHINE SULFATE 2 MG/ML VIAL ONE (23:04)
[2019-11-02] MEDS ORDERED: HALOPERIDOL LACTATE 5 MG/ML IM ONE (23:09)
[2019-11-02 23:53] LABS: LIPASE 81 U/L (73-393)
[2019-11-03] MEDS ORDERED: HALOPERIDOL LACTATE 5 MG/ML ONE (00:56)
== END 2019-11-03 02:27 | disposition home or self-care (01) ==
LOC: JER 19:31
PROC: 3E033NZ Introduction of Analgesics, Hypnotics, Sedatives into Peripheral Vein, Percutaneous Approach (ICD-10-PCS; principal; 2019-11-02)
PROC: 3E033GC Introduction of Other Therapeutic Substance into Peripheral Vein, Percutaneous Approach (ICD-10-PCS; 2019-11-02)
PROC: 3E023GC Introduction of Other Therapeutic Substance into Muscle, Percutaneous Approach (ICD-10-PCS; 2019-11-02)
DX: R11.10 Vomiting, unspecified (principal)
CPT/HCPCS: 36415; 74176-TC; 80053; 83690; 84702; 85025; 99284-25

== ENCOUNTER 2019-11-04 07:15 | Emergency (ER) | payer OTHER ==
[2019-11-04 07:57] VITALS: BMI 28.0
[2019-11-04] MEDS ORDERED: METOCLOPRAMIDE HCL INJECTION 10 MG/2 ML VIAL IVPB ONE (08:12)
[2019-11-04] MEDS ORDERED: SODIUM CHLORIDE 0.9% 1000 ML INFUS.BAG IV ONE (08:13)
[2019-11-04] MEDS ORDERED: METOCLOPRAMIDE HCL INJECTION 10 MG/2 ML VIAL ONE (08:13)
--- NOTE | 2019-11-04 08:23 | PDOC ---
History of Present Illness - General Chief Complaint: Pain Stated Complaint: ABDOMINAL PAIN NAUSEA Time Seen by Provider: 11/04/19 08:30 History Source: Patient Exam Limitations: No Limitations - History of Present Illness Initial Comments: 11/04/19 08:58 24 y.o. F PMHx of asthma on singulair. Patient stated she started having vomiting 3 days ago. Patient stated she has not eaten or drank anything at the time of onset. Pt. said her emesis has too many times to count and has been a brown color, pain is located LUQ and described as sharp stabbing, nonradiating. She has not had a bowel movement in the past 3 days. Pt said she has been having a severe headache 9/10 intensity onset while she was in the ED. She was evaluated in the [facility] ED on 11/02 and was d/c with Zofran. PMHx: Asthma Meds: Singulair PCP: Reffered to [facility] clinic PSH: 1 vaginal Allergies: NKDA 11/04/19 09:27 Is this a multiple visit Asthma Patient?: No Timing/Duration: other (3 days) Modifying Factors: improves with: eating Associated Symptoms: reports: headaches, loss of appetite, nausea/vomiting. denies: chest pain, cough, fever/chills, shortness of breath Aspirin Received prior to arrival: Yes: unknown Beta Lizette Given by EMS(Core Measure): No Beta Lizette Taken at Home(Core Measure): No Beta Lizette Not Indicated at this Time(Core Measure): No Past History - Travel History Traveled outside of the country in the last 30 days: No Close contact w/someone who was outside of country & ill: No - Medical History Allergies/Adverse Reactions: Allergies Allergy/AdvReac Type Severity Reaction Status Date / Time No Known Allergies Allergy Verified 11/02/19 19:36 Home Medications: Ambulatory Orders Ondansetron [Zofran *Odt*] 4 mg SL TID PRN #21 od.tablet 02/07/19 Ondansetron HCl [Zofran] 4 mg SL BID #8 tablet 11/03/19 Anemia: No COPD: No GI Disorders: Yes (gastrophoresis) Seizures: (smokes marijuana) Thyroid Disease: No - Surgical History Abdominal Surgery: No - Reproductive History Is Patient Now?: No - Immunization History Immunization Up to Date: No - Psycho-Social/Smoking History Smoking History: Current some day smoker Have you smoked in the past 12 months: No Number of Cigarettes Smoked Daily: 2 Information on smoking cessation initiated: No - Substance Abuse Hx (Audit-C & DAST Scrn) In the last yr the pt used illegal drug/Rx for NonMed reason: Yes Score: Yes response is considered Positive: 1 Screen Result (Positive result requires Nsg. DAST-10): Positive Review of Systems - Review of Systems Able to Perform ROS?: Yes Is the patient limited Maltese proficient: No Constitutional: No: Chills, Fever HEENTM: No: Blurred Vision, Recent change in vision Respiratory: No: Cough, Shortness of Breath Cardiac (ROS): No: Chest Pain, Lightheadedness ABD/GI: Yes: Nausea, Poor Appetite, Vomiting. No: Abdominal Distended, I ndigestion : No: Burning, Dysuria Musculoskeletal: No: Muscle Pain, Muscle Weakness Integumentary: No: Erythema, Flushing Neurological: Yes: Headache. No: Numbness, Tingling Hematologic/Lymphatic: No: Easy Bleeding, Easy Bruising *Physical Exam - Vital Signs Last Vital Signs Temp Pulse Resp BP Pulse Ox 98.3 F 55 L 16 138/99 100 11/04/19 07:15 11/04/19 07:15 11/04/19 07:15 11/04/19 07:15 11/04/19 07:15 - Physical Exam General Appearance: Yes: Nourished, Appropriately Dressed, Mild Distress Respiratory/Chest: positive: Lungs Clear, Normal Breath Sounds. negative: Chest Tender, Respiratory Distress, Accessory Muscle Use Cardiovascular: positive: Regular Rhythm, Regular Rate Gastrointestinal/Abdominal: positive: Normal Bowel Sounds, Flat, Soft. negative: Tender, Organomegaly, Pulsatile Mass, Increased Bowel Sounds, Decreased BS, Distended, Rebound, Tenderness Musculoskeletal: positive: Normal Inspection. negative: CVA Tenderness Extremity: negative: Normal Inspection, Coldness, Swelling, Calf Tenderness Integumentary: positive: Normal Color, Dry, Warm Neurologic: positive: Fully Oriented, Alert, Normal Mood/Affect, Normal Response ED Treatment Course - LABORATORY CBC & Chemistry Diagram: 11/04/19 07:40 11/04/19 07:40 Medical Decision Making - Medical Decision Making 11/04/19 09:08 24 y.o. F PMHx Asthma presenting due to 3 days of nausea and vomiting of brown emesis. DDx including but not limited to: Marijuana hyperemesis, SBO, ovarian torsion, enteric virus, IBD, IBS, appendicitis, pancreatitis, diverticulitis, kidney stone. EKG: NSR, QTc 494ms CT Abdomen: No acute appendicitis, diverticulitis, No acute pathology seen test: (-) Labs: AST 59, ALT 63 Dispo: 11/04/19 09:49 Discharge - Discharge Information Problems reviewed: Yes Clinical Impression/Diagnosis: Cyclic vomiting syndrome Condition: Improved Disposition: HOME - Follow up/Referral Referrals: [facility] [place] [Provider Group] Nehemias Brown MD [Staff Physician] - - Patient Discharge Instructions Patient Printed Discharge Instructions: DI for Vomiting -- Adult Additional Instructions: You were seen and evaluated in [facility] ED for nausea and vomiting. You were given 1L of IV fluids, 75mg of Benadryl, 10mg metoclopramide. You did not have a primary care physician so we referred you to [facility], we also referred you to GI specialist Dr. Brown. Call and make an appointment your workup is not complete until an appointment is made. The prescription (Zofran) was sent you your pharmacy, please order picker/assembler after discharge. If you have any fever, chills, continued nausea/vomiting or abdominal pain please call 911 or return the the emergency department. - Post Discharge Activity
--- OUTSIDE RECORDS SUMMARY | 2019-11-04 08:26 | XMS ---
[...] is protected by Article 27-F of the [facility] Public Health law. If you continue you may haveaccess to information: Regarding HIV / AIDS; Provided by facilities licensed or operated by the [facility] Office of Mental Health; or Provided by the [facility] Office for People With Developmental Disabilities. If such information is present, then the following [facility] mandated warning applies: This information has [...] law may result in a fine or half-way sentence or both. A general authorization for the release of medical or other information is NOT sufficient authorization for further disclosure. Encounters Encounter Providers Location Date Indications Data Source(s ) Emergency Attender: [facility]NA ED H 02/06/2019 [facility] STAFF 10:10:00 AM EST Medical C enter PHYSICIANAttender: - 02/06/2019 STAFF ED STAFF 04:31:00 PM EST PHYSICIANAdmitter: KEYONNA ED STAFF PHYSICIANReferrer: STAFF ED STAFF PHYSICIAN Patient discharged. Emergency H 10/09/2018 08:45:00 PM EDT - [address] [place] [address] 11:57:00 PM EDT Patient discharged. Insurance Providers Payer name Policy type Policy ID Covered Covered republican's Policy P alfredo / Coverage republican ID relationship to [employer] Inf ormation type [employer] MEDICAID [id number] SP [id number] COMM PLAN MEDICAID [id number] SP [id number] SELF PAY SP INSURANCE AFFINITY O [id number] HEALTH PLAN [employer] O [id number] [facility]AN [facility] O [id number] Problems, Conditions, and Diagnoses Code Display Name Description Problem Type Effective Data Sour ce(s) Dates J45.909 Unspecified UNSPECIFIED Diagnosis 02/06/2019 [place] [facility] asthma, ASTHMA, 10:10:00 AM [facility] uncomplicated UNCOMPLICATED EST R10.9 Unspecified UNSPECIFIED Diagnosis 02/06/2019 [facility] abdominal pain ABDOMINAL PAIN 10:10:00 AM Medic al Center EST R11.2 Nausea with NAUSEA WITH Diagnosis 02/06/2019 [place] [facility] vomiting, VOMITING, 10:10:00 AM Medical Cente r unspecified UNSPECIFIED EST R11.10 Vomiting, VOMITING, Diagnosis 02/06/2019 [facility] Ian unspecified UNSPECIFIED 10:10:[address] EST N64.52 Nipple discharge NIPPLE DISCHARGE Diagnosis 10/09/2018 [facility] 08:45:00 PM Medical Cente r EDT Results ID Date Data Source [facility].[id number] 02/06/2019 11:04:00 AM EST [facility] Name Value Range Interpretation Description Data Sup porting Code Source(s) Document(s ) Potassium <content [facility] [Moles/volume styleCode="Bold Medical ] in Serum or ">Potassium Center Plasma </content>Test not performed. MEQ/L (Reference Range: not available)
ID Date Data Source Liver 02/06/2019 10:35:00 AM EST [facility] Profile.[id number] Name Value Range Interpretation Description Data Sup [...] s"> (3.5-5.0 G/DL)</content> ID Date Data Source HematologyRou.[id number] 02/06/2019 10:35:00 AM EST [facility] 0500 Name Value Range Interpretation Description Data Sup porting Code Source(s) Document(s ) Hematocrit 36.0-46. <content [facility] [Volume 0 styleCode="Bold Ian Fraction] of ">Hematocrit Medical Blood by </content>40.1 [...] (< 1 %)</content> ID Date Data Source GFR(Creatinine).[id number] 02/06/2019 10:35:00 AM [facility] 0-0500 Name Value Range Interpretation Code Description Data Evie rce(s) Supporting Document(s ) UNK > 60 <content [facility] styleCode="Bold"> Medical Cent er EGFR </content>161 GFR<content styleCode="Italic s"> (> 60 GFR)</content> ID Date Data Source MROUTINECCDA.[id number] 02/06/2019 10:35:00 AM [facility] -0500 Name Value Range Interpretation Description Data Sup porting Code Source(s) Document(s ) Protein 6.3-8.2 Above high normal <content [place] [facility] [Mass/volum styleCode="Bold Medical e] in Serum ">Total Protein Center or Plasma </content>9.6 G/DL H<content styleCode="Ital ics"> (6.3-8.2 G/DL)</content> UNK >= 1.0 <content Ian styleCode="Bold Medical ">AG Ratio Center </content>1.3 <content styleCode="Ital ics"> (>= 1.0 )</content> UNK 2.3-3.5 Above high normal <content [facility] styleCode="[facility]old Medical ">Globulin Center </content>4.2 G/DL H<content styleCode="Ital ics"> (2.3-3.5 G/DL)</content> Lipase 23-300 <content [facility] [Enzymatic styleCode="Bold Medical activity/vo ">Lipase Center lume] in </content>105 Serum or IU/L<content Plasma styleCode="Ital ics"> (23-300 IU/L)</content> ID Date Data Source [facility].[id number] 02/06/2019 10:35:00 AM EST [facility] Center Name Value Range Interpretation Description Data Sup porting Code Source(s) Document(s ) Chloride 98-107 <content [facility] [Moles/volume] in styleCode="Bold"> [facility] phs Serum or Plasma Chloride Medical </content>104 Center MEQ/L<content styleCode="Italic s"> (98-107 MEQ/L)</content> Potassium <content [facility] [Moles/volume] in styleCode="Bold"> [facility] Serum or Plasma Potassium Medical </content>Test Center not performed. MEQ/L (Reference Range: not available)
UNK 7-17 <content [facility] styleCode="Bold"> Ian BUN </content>11 Medical MG/DL<content Center styleCode="Italic s"> (7-17 MG/DL)</content> Sodium 137-145 <content [facility] [Moles/volume] in styleCode="Bold"> [facility] Serum or Plasma Sodium Medical </content>140 Center [...] MG/DL)</content> UNK > 60 <content [facility] styleCode="Bold"> Ian EGFR Medical </content>161 Center GFR<content styleCode="Italic s"> [...] MG/DL)</content> Alkaline 38-126 <content [facility] phosphatase styleCode="Bold"> Ian [Enzymatic Alkaline Medical activity/volume] Phosphatase (ALP) Cente r in Serum or Plasma </content>59 IU/L<content styleCode="Italic s"> (38-126 IU/L)</content> ID Date Data Source Urinalysis.[id number] 10/09/2018 10:40:00 PM EDT [facility] 0 Name Value Range Interpretation Description Data Sup porting Code Source(s) Document(s ) Color of Urine YELLOW <content [facility] styleCode="Sarah Sosa d">Color, Medical Urine Center </content>YELL OW <content [...] by Test d">Urine Medical strip Specific Center Kelly </content>1.02 0 <content styleCode="Kenisha lics"> (1.015-1.025 )</content> Glucose NEGATIVE <content [facility] [Mass/volume] styleCode="Sarah Sosa in Urine by d">Urine Medical Test strip Glucose Center </content>NEGA TIVE MG/DL<content styleCode="Kenisha lics"> (NEGATIVE MG/DL)</conten t> Nitrite NEGATIVE <content [facility] [Presence] in styleCode="Sarah Sosa Urine by Test d">Urine Medical strip Nitrite Center </content>NEGA TIVE <content styleCode="Kenisha lics"> (NEGATIVE )</content> Protein NEGATIVE <content [facility] [Mass/volume] styleCode="Sarah Sosa in Urine by d">Urine Medical Test strip Protein Center </content>NEGA TIVE MG/DL<content styleCode="Kenisha lics"> (NEGATIVE MG/DL)</conten t> Hemoglobin NEGATIVE <content [facility] [Presence] in styleCode="Sarah Cornejos Urine by Test d">Urine Blood Medical strip [...] Interpretation Code Description Data Source(s) Body temperature 36.174402 36.118846 [facility] Respiratory rate 18 /min 18 /min [facility] Oxygen saturation 97 % 97 % [facility] in Arterial blood Medical Center by Pulse oximetry Heart rate 85 /min 85 /min [facility] Diastolic blood 75 mm[Hg] 75 mm[Hg] [facility] pressure Medical Center Systolic blood 132 mm[Hg] 132 mm[Hg] [facility] pressure Medical Center Body weight 72.744581 kg 72.302296 kg [facility] Body temperature 36.259871 36.304988 [facility] Respiratory rate 18 /min 18 /min [facility] Oxygen saturation 97 % 97 % [facility] in Arterial blood Medical Center by Pulse oximetry Heart rate 84 /min 84 /min [facility] Body height 175.591191 175.848643 cm [facility] Diastolic blood 82 mm[Hg] 82 mm[Hg] [facility] pressure Medical Center Systolic blood 147 mm[Hg] 147 mm[Hg] [facility] pressure Medical Center Body mass index 23.6 kg/m2 23.6 kg/m2 [facility] (BMI) [Ratio] Medical [facility] ter Body temperature 36.441129 36.291323 [facility] Respiratory rate 17 /min 17 /min [facility] Oxygen saturation 100 % 100 % [facility] in Arterial blood Medical Center by Pulse oximetry Heart rate 109 /min 109 /min [facility] Diastolic blood 75 mm[Hg] 75 mm[Hg] [facility] pressure Medical Center Systolic blood 134 mm[Hg] 134 mm[Hg] [facility] pressure Medical Center
[2019-11-04 09:09] LABS: ALBUMIN 3.8 g/dl (3.4-5.0); BILIRUBIN,TOTAL 0.4 mg/dL (0.2-1); BLOOD UREA NITROGEN 9.8 mg/dL (7-18); CREATININE 0.8 mg/dL (0.55-1.3); POTASSIUM 3.6 mmol/L (3.5-5.1); TOT PROT 7.8 g/dl (6.4-8.2)
[2019-11-04] MEDS ORDERED: ACETAMINOPHEN 1000 MG/100 ML VIAL (NON FORMULARY) IVPB ONE (09:24)
[2019-11-04] MEDS ORDERED: ACETAMINOPHEN INJECTION 100 ML IVPB ONE (09:38)
[2019-11-04 09:55] LABS: BASO % 0.4 % (0-2.0); EOS % 0.4 % (0-4.5); HEMATOCRIT 38.4 % (32.4-45.2); HEMOGLOBIN 12.2 GM/dL (10.7-15.3); LYMPH % 38.7 % (8-40); MCH 26.7 pg (25.7-33.7); MCHC 31.9 g/dl (32.0-36.0); MEAN CELL VOLUME 83.7 fl (80-96); MEAN PLT VOLUME 9.7 fl (7.5-11.1); MONO % 10.4 % (3.8-10.2); NEUT % 50.1 % (42.8-82.8); PLATELET COUNT 307 K/MM3 (134-434); RBC 4.59 M/mm3 (3.60-5.2); RDW 14.4 % (11.6-15.6); WHITE BLOOD COUNT 8.9 K/mm3 (4.0-10.0)
--- NOTE | 2019-11-04 10:34 | PDOC ---
Attending Attestation - Resident Resident Name: Clemente Moreira - ED Attending Attestation I have performed the following: I have examined & evaluated the patient, The case was reviewed & discussed with the resident, I agree w/resident's findings & plan, Exceptions are as noted - HPI HPI: 11/04/19 10:32 24 years old multiple visits to the emergency department for same presents to the ED with cyclic vomiting Was seen 2 days ago had CAT scan done lab work done no acute findings on CAT scan Was given prescription for nausea medications. Habitually uses cannabis Was instructed to stop. Did not stop. Continues to feel upper abdominal discomfort with nausea vomiting No fever no chills no chest pain or shortness of breath - Physicial Exam PE: 11/04/19 10:33 Vitals: Triage Vital signs reviewed General Appearance: No acute distress, well nourished well developed, Head: Atraumatic, Chest Wall: Nontender Cardiac: Regular rate and rhythym, no murmurs, no rubs, no gallops, Lungs: Clear to auscultation bilateral, good air movement bilaterally, Abdomen: Soft, non distended, normal bowel sounds, non tender to palpation Psych: Normal mood, normal affect - Medical Decision Making 11/04/19 10:33 Benign abdominal examination laboratory analysis unremarkable status post Benadryl and Reglan patient feels better We will p.o. challenge and reassess Historically patient is endorses feeling better after very hot showers. History examination most consistent with hyperemesis cannabinoid syndrome No indication for repeat imaging at this time given CT from 2 days ago no new fever no new white count and no rebound guarding or acute findings on abdominal examination We will p.o. challenge. Advised patient to discontinue cannabis use GI follow- up Discharge - Discharge Information Problems reviewed: Yes Clinical Impression/Diagnosis: Cyclic vomiting syndrome - Follow up/Referral Referrals: [facility] [place] [Provider Group] - Patient Discharge Instructions - Post Discharge Activity
[2019-11-04 11:01] VITALS: BP 110/69; PULSE 68; TEMP 98.6
--- NOTE | 2019-11-04 14:07 | EKG ---
Test Reason : Blood Pressure : / mmHG Vent. Rate : 078 BPM Atrial Rate : 078 BPM P-R Int : 192 ms QRS Dur : 088 ms QT Int : 434 ms P-R-T Axes : 060 082 084 degrees QTc Int : 494 ms NORMAL SINUS RHYTHM WITH SINUS ARRHYTHMIA PROLONGED QT ABNORMAL ECG NO PREVIOUS ECGS AVAILABLE Confirmed by CONRAD PAVON MD ([id number]) on 11/04/2019 2:07:15 PM Referred By: Confirmed By:CONRAD PAVON MD
== END 2019-11-04 11:02 | disposition home or self-care (01) ==
LOC: JER 07:15
PROC: 3E0333Z Introduction of Anti-inflammatory into Peripheral Vein, Percutaneous Approach (ICD-10-PCS; principal; 2019-11-04)
PROC: 3E033GC Introduction of Other Therapeutic Substance into Peripheral Vein, Percutaneous Approach (ICD-10-PCS; 2019-11-04)
DX: G43.A0 Cyclical vomiting, in migraine, not intractable (principal)
CPT/HCPCS: 36415; 80053; 85025; 93005; 93010; 99284-25; J0131; U0003

== ENCOUNTER 2019-11-07 08:29 | Inpatient (IN) | payer OTHER ==
[2019-11-07 08:38] VITALS: BMI 26.6
[2019-11-07] MEDS ORDERED: LACTATED RINGERS SOLUTION 1000 ML INFUS.BAG IV ONE (09:08)
[2019-11-07] MEDS ORDERED: ACETAMINOPHEN 1000 MG/100 ML VIAL (NON FORMULARY) IVPB ONE (09:08)
[2019-11-07] MEDS ORDERED: ACETAMINOPHEN INJECTION 100 ML IVPB ONE ×2 (09:23→09:28)
--- NOTE | 2019-11-07 09:39 | PDOC ---
History of Present Illness - General Chief Complaint: Nausea/Vomiting Stated Complaint: VOMITING/NAUSEA Time Seen by Provider: 11/07/19 08:44 History Source: Patient - History of Present Illness Initial Comments: 11/07/19 09:34 24F w/hx canabinoid hyperemesis p/w 7 days of nausea, vomiting, abdominal pain. She was evaluated here 3 days ago on 11/03, as well as on 11/01. She received zofran at that time which improved symptoms temporarily. She was prescribed Zofran after her most recent ED visit. She reports taking x1 Zofran immediately prior to her arrival. History limited by discomfort. She reports constant nbnb vomiting, and that she has not eaten anything in 7 days. She denies fevers, chills, diarrhea, constipation, or prior abdominal surgeries. Past History - Medical History Allergies/Adverse Reactions: Allergies Allergy/AdvReac Type Severity Reaction Status Date / Time No Known Allergies Allergy Verified 11/07/19 11:27 Home Medications: Ambulatory Orders Ondansetron [Zofran *Odt*] 4 mg SL TID PRN #21 od.tablet 02/07/19 Ondansetron HCl [Zofran] 4 mg SL BID #8 tablet 11/03/19 Anemia: No COPD: No GI Disorders: Yes (gastrophoresis) Seizures: (smokes marijuana) Thyroid Disease: No - Surgical History Abdominal Surgery: No - Reproductive History Is Patient Now?: No - Immunization History Immunization Up to Date: No - Psycho-Social/Smoking History Smoking History: Current some day smoker Have you smoked in the past 12 months: No Number of Cigarettes Smoked Daily: 2 Information on smoking cessation initiated: No - Substance Abuse Hx (Audit-C & DAST Scrn) How often the patient has a drink containing alcohol: Never Score: In Men: 4 or > Positive; In Women: 3 or > Positive: 0 Screen Result (Pos requires Nsg. Audit-10AR): Negative In the last yr the pt used illegal drug/Rx for NonMed reason: No Score: Yes response is considered Positive: 0 Screen Result (Positive result requires Nsg. DAST-10): Negative Review of Systems - Review of Systems Able to Perform ROS?: Yes Comments:: 11/07/19 09:36 GENERAL/CONSTITUTIONAL: No fever or chills. No weakness. HEAD, EYES, EARS, NOSE AND THROAT: No change in vision. No ear pain or discharge. No sore throat. CARDIOVASCULAR: No chest pain or shortness of breath RESPIRATORY: No cough, wheezing, or hemoptysis. GASTROINTESTINAL: Nausea, vomiting, abdominal pain. No diarrhea or constipation. GENITOURINARY: No dysuria, frequency, or change in urination. MUSCULOSKELETAL: No joint or muscle swelling or pain. No neck or back pain. SKIN: No rash NEUROLOGIC: No headache, vertigo, loss of consciousness, or change in strength/sensation. ENDOCRINE: No increased thirst. No abnormal weight change HEMATOLOGIC/LYMPHATIC: No anemia, easy bleeding, or history of blood clots. ALLERGIC/IMMUNOLOGIC: No hives or skin allergy. *Physical Exam - Vital Signs Last Vital Signs Temp Pulse Resp BP Pulse Ox 98.9 F 94 H 18 145/101 H 100 11/07/19 08:33 11/07/19 08:33 11/07/19 08:33 11/07/19 08:33 11/07/19 08:33 - Physical Exam 11/07/19 09:36 GENERAL: Awake, alert, and fully oriented, in no acute distress HEAD: No signs of trauma, normocephalic, atraumatic EYES: PERRLA, EOMI, sclera anicteric, conjunctiva clear ENT: Auricles normal inspection, hearing grossly normal, nares patent, oropharynx clear without exudates. Moist mucosa NECK: Normal ROM, supple, no lymphadenopathy, JVD, or masses LUNGS: No distress, speaks full sentences, clear to auscultation bilaterally HEART: Regular rate and rhythm, normal S1 and S2, no murmurs, rubs or gallops, peripheral pulses normal and equal bilaterally. ABDOMEN: Diffuse tenderness. Soft. No guarding, no rebound. No masses EXTREMITIES : Normal inspection, Normal range of motion, no edema. No clubbing or cyanosis NEUROLOGICAL: Cranial nerves II through XII grossly intact. Normal speech, normal gait, no focal sensorimotor deficits SKIN: Warm, Dry, normal turgor, no rashes or lesions noted ED Treatment Course - LABORATORY CBC & Chemistry Diagram: 11/07/19 09:15 11/07/19 09:15 - Medications Given in the ED: ED Medications Discontinued Medications Generic Name Dose Route Start Last Admin Trade Name Freq PRN Reason Stop Dose Admin Lactated Ringer's 1,000 ml 09/24/20 09:08 11/07/19 09:25 Lactated Ringers Solution IV 11/07/19 09:09 1,000 ml ONCE ONE Administration Medical Decision Making - Medical Decision Making 11/07/19 09:37 24F w/hx canabinoid hyperemesis p/w ongoing nausea, vomiting, abdominal pain likely representing cyclic vomiting syndrome. Ddx pancreatitis, viral GI infection. Plan: EKG prior to antiemetics as Zofran recently prescribed 1L LR CBC CMP [facility] Dispo: Discharge pending reassessment Discharge - Discharge Information Problems reviewed: Yes Clinical Impression/Diagnosis: Cyclic vomiting syndrome, Abdominal pain, Nausea and vomiting Condition: Stable - Admission Yes - Follow up/Referral Referrals: Myriam Martínez MD [Primary Care Provider] - - Patient Discharge Instructions - Post Discharge Activity
[2019-11-07 10:01] LABS: BASO % 0.6 % (0-2.0); EOS % 1.1 % (0-4.5); HEMOGLOBIN 13.1 GM/dL (10.7-15.3); LYMPH % 27.1 % (8-40); MCH 26.7 pg (25.7-33.7); MCHC 31.8 g/dl (32.0-36.0); MEAN CELL VOLUME 84.1 fl (80-96); MEAN PLT VOLUME 9.3 fl (7.5-11.1); MONO % 10.1 % (3.8-10.2); NEUT % 61.1 % (42.8-82.8); PLATELET COUNT 299 K/MM3 (134-434); RBC 4.88 M/mm3 (3.60-5.2); RDW 14.8 % (11.6-15.6); WHITE BLOOD COUNT 8.9 K/mm3 (4.0-10.0)
[2019-11-07 10:19] LABS: EPI CELLS >36 /uL (0-25.1); HYALINE CASTS 21 /uL (0-3.1); URINE APPEARANCE TURBID; URINE BACTERIA >9,000 /uL (0-1359); URINE BILIRUBIN NEGATIVE (NEGATIVE); URINE COLOR YELLOW; URINE GLUCOSE (UA) NEGATIVE (NEGATIVE); URINE KETONE NEGATIVE (NEGATIVE); URINE LEUK ESTERASE 1+ (NEGATIVE); URINE NITRITE NEGATIVE (NEGATIVE); URINE PROTEIN TRACE (NEGATIVE); URINE WBC 413 /uL (0-25.8)
[2019-11-07] MEDS ORDERED: METOCLOPRAMIDE HCL INJECTION 10 MG/2 ML VIAL IVPUSH ONE (10:25)
[2019-11-07 10:29] LABS: ALBUMIN 3.6 g/dl (3.4-5.0); BILIRUBIN,TOTAL 0.5 mg/dL (0.2-1); CALCIUM 9.5 mg/dL (8.5-10.1); CREATININE 0.7 mg/dL (0.55-1.3); POTASSIUM 3.4 mmol/L (3.5-5.1); TOT PROT 7.7 g/dl (6.4-8.2)
[2019-11-07] MEDS ORDERED: METOCLOPRAMIDE HCL INJECTION 10 MG/2 ML VIAL ONE (10:36)
[2019-11-07] MEDS ORDERED: CEFTRIAXONE 1 GM in DEXTROSE 5%-WATER - 100 ML IVPB ONE (11:04)
[2019-11-07] MEDS ORDERED: CEFTRIAXONE 1 GM/50 ML BAG ONE (11:12)
[2019-11-07 12:10] LABS: URINE RBC 15.1 /uL (0-23.9)
--- NOTE | 2019-11-07 12:37 | PDOC ---
Documentation entered by Osiel Shannon SCRIBE, acting as scribe for Deidre Fenton MD. Deidre Fenton MD: This documentation has been prepared by the Cassidy houston inOsiel SCRIBE, under my direction and personally reviewed by me in its entirety. I confirm that the documentation accurately reflects all work, treatment, procedures, and medical decision making performed by me. Attending Attestation - Resident Resident Name: CharoHerbert - ED Attending Attestation I have performed the following: I have examined & evaluated the patient, The case was reviewed & discussed with the resident, I agree w/resident's findings & plan, Exceptions are as noted - HPI HPI: 11/07/19 09:35 The patient is a 24 year old female with no significant past medical history who presents to the emergency department for evaluation of nausea and vomiting that began seven days ago. The patient reports she does not know how many episodes of NBNB vomiting she has had but it has persisted all day, every day. She also endorses intractable abdominal pain. The patient reports she has been unable to eat or drink for the past week. She presented to the ED three days ago and five days ago with the same symptoms and was given Zofran Tums. The patient endorses Zofran has provided relief in the past. The patient is a poor historian. The patient denies chest//back pain, cough, shortness of breath, fever, and chills. Denies any symptoms. Denies any other symptoms. Allergies: NKA Social Hx: The patient reports smoking marijuana daily. Surgical Hx: None reported - Physicial Exam PE: 11/07/19 12:33 Agree with resident exam. patient is alert and oriented and appears mildly uncomfortable. ABdomen is soft, non tender, non distended, without guarding or rebound. - Medical Decision Making 11/07/19 12:35 Pt presents to the ED complaining of nausea, vomiting and diffuse abdominal pain. History of several recent visits for similar complaints. Carries dx of cyclic vomiting syndrome, but states that her last THC use was >1 month ago. Denies urinary complaints but has uti on UA. Given that she us unable to tolerate PO, will admit to medicine for IV antibiotics. Discharge - Discharge Information Problems reviewed: Yes Clinical Impression/Diagnosis: Cyclic vomiting syndrome, Abdominal pain, Nausea and vomiting Condition: Stable Disposition: ELOPED - Follow up/Referral - Patient Discharge Instructions - Post Discharge Activity
[2019-11-07] MEDS ORDERED: TRIMETHOBENZAMIDE HCL 200MG/2ML INJ IM PRN (13:03)
[2019-11-07] MEDS ORDERED: ONDANSETRON 4 MG/2 ML VIAL IVPB PRN (13:03)
[2019-11-07] MEDS ORDERED: SODIUM CHLORIDE 1,000 ML IV SCH (13:15)
--- NOTE | 2019-11-07 13:17 | HP ---
CHIEF COMPLAINT: nausea, vomiting, dysuria PCP: HISTORY OF PRESENT ILLNESS: Patient is a 24 y/o female with a history of hyperemesis with who presents for repeated nausea and vomiting. Patient reports for 6 days she has not been able to keep any food down and she has been nauseous and vomiting. She denies eating anything strange. She states she has not been having any bowel movements. Patient denies pain with urination, increased frequency or pressure. Patient reports she is sexually active with her boyfriend but does not always use protection. She reports this has never happened before. Patient reports she has not smoke marijuana n a moth and a half. ER course was notable for: (1) IV tylenol, metoclopramide (2) (3) Recent Travel: PAST MEDICAL HISTORY: hyperemesis with PAST SURGICAL HISTORY: denies Social History: Smoking: denies Alcohol: denies Drugs: marijuana a month and a half ago Allergies No Known Allergies Allergy (Verified 11/07/19 11:27) HOME MEDICATIONS: Home Medications Medication Instructions Recorded Ondansetron [Zofran *Odt*] 4 mg SL TID PRN #21 od.tablet 02/07/19 Ondansetron HCl [Zofran] 4 mg SL BID #8 tablet 11/03/19 REVIEW OF SYSTEMS CONSTITUTIONAL: Absent: fever, chills, diaphoresis, generalized weakness, malaise, loss of appetite, weight change HEENT: Absent: rhinorrhea, nasal congestion, throat pain, throat swelling, difficulty swallowing, mouth swelling, ear pain, eye pain, visual changes CARDIOVASCULAR: Absent: chest pain, syncope, palpitations, irregular heart rate, lightheadedness, peripheral edema RESPIRATORY: Absent: cough, shortness of breath, dyspnea with exertion, orthopnea, wheezing, stridor, hemoptysis GASTROINTESTINAL: nausea, vomiting, abdominal pain, Absent: abdominal pain, abdominal distension, diarrhea, constipation, melena, hematochezia GENITOURINARY: Absent: dysuria, frequency, urgency, hesitancy, hematuria, flank pain, genital pain MUSCULOSKELETAL: Absent: myalgia, arthralgia, joint swelling, back pain, neck pain SKIN: Absent: rash, itching, pallor HEMATOLOGIC/IMMUNOLOGIC: Absent: easy bleeding, easy bruising, lymphadenopathy, frequent infections ENDOCRINE: Absent: unexplained weight gain, unexplained weight loss, heat intolerance, cold intolerance NEUROLOGIC: Absent: headache, focal weakness or paresthesias, dizziness, unsteady gait, seizure, mental status changes, bladder or bowel incontinence PSYCHIATRIC: Absent: anxiety, depression, suicidal or homicidal ideation, hallucinations. PHYSICAL EXAMINATION Vital Signs Temperature 98.7 F 11/07/19 13:03 Pulse Rate 92 H 11/07/19 13:03 Respiratory Rate 19 11/07/19 13:03 Blood Pressure 147/98 11/07/19 13:03 O2 Sat by Pulse Oximetry (%) 100 11/07/19 13:03 GENERAL: Awake, alert, and fully oriented, in moderate distress HEAD: Normal with no signs of trauma. EYES: Pupils equal, round and reactive to light, extraocular movements intact EARS, NOSE, THROAT: Moist mucous membranes. LUNGS: Breath sounds equal, clear to auscultation bilaterally. No wheezes, and no crackles. No accessory muscle use. HEART: Regular rate and rhythm, normal S1 and S2 without murmur, rub or gallop. ABDOMEN:soft, non tender, hypoactive bowel sounds, negative mcburneys MUSCULOSKELETAL: Normal range of motion at all joints. No CVA tenderness. LOWER EXTREMITIES: 2+ pulses, warm, well-perfused. No peripheral edema. SKIN: Warm, dry, normal turgor, no rashes or lesions noted, normal capillary refill. CBC, BMP 11/07/19 09:15 11/07/19 09:15 ASSESSMENT/PLAN: Patient is a 24 y/o female with a history of hyperemesis cannabis who is admitted for intractable vomiting 2/2 to UTI. #intractable vomiting likely 2/2 to UTI - UA grossly positive for UTI, f/u Ucx - continue ceftriaxone - zofran and tigan antiemetic, QTC : 452 - 1L NS ordered - continue diet as tolerated - cannot exclude hyperemesis cannabis as well, f/u utox, beta hcg negative - f/u STD panel - if symptoms do not resolve, consider further imaging #DVT - ppx with Lovenox Dispo: monitor on med surg ATTENDING PHYSICIAN STATEMENT I saw and evaluated the patient. I reviewed the resident's note and discussed the case with the resident. I agree with the resident's findings and plan as documented. SUBJECTIVE: OBJECTIVE: ASSESSMENT AND PLAN:
--- NOTE | 2019-11-07 14:03 | EKG ---
Test Reason : Blood Pressure : / mmHG Vent. Rate : 058 BPM Atrial Rate : 058 BPM P-R Int : 168 ms QRS Dur : 092 ms QT Int : 438 ms P-R-T Axes : 048 083 073 degrees QTc Int : 429 ms SINUS BRADYCARDIA WITH SINUS ARRHYTHMIA ST ELEVATION, CONSIDER EARLY REPOLARIZATION, PERICARDITIS, OR INJURY ABNORMAL ECG WHEN COMPARED WITH ECG OF 04-NOV-2019 08:38, QT HAS SHORTENED Confirmed by ELINOR IBRAHIM, TAYA ([id number]) on 11/07/2019 2:03:16 PM Referred By: Confirmed By:TAYA ALDRICH MD
[2019-11-07 17:13] LABS: COCAINE, UR NEGATIVE ng/ml (CUTOFF=300); OPIATES, URI NEGATIVE ng/ml (CUTOFF=300); PHENCYCLIDINE,URINE NEGATIVE ng/ml (CUTOFF=25); URINE AMPHETAMINES NEGATIVE ng/ml (CUTOFF=500); URINE BARBITURATES NEGATIVE ng/ml (CUTOFF=200)
[2019-11-07 17:17] LABS: METHADONE, UR NEGATIVE ng/ml (CUTOFF=300); URINE BENZODIAZEPINES NEGATIVE ng/ml (CUTOFF=200)
[2019-11-07 17:41] VITALS: BP 128/82; PULSE 61; TEMP 99.2
[2019-11-08] MEDS ORDERED: CEFTRIAXONE 1 GM in DEXTROSE 5%-WATER - 50 ML IVPB SCH (10:00)
[2019-11-08] MEDS ORDERED: ENOXAPARIN NA (PORCINE) 40 MG/0.4 ML DISP.SYRIN SQ SCH (10:00)
== END 2019-11-07 18:30 | disposition left against medical advice (07) | DRG 463 ==
LOC: JER 08:29 → JERBED 13:00
DX: N39.0 Urinary tract infection, site not specified (principal); R11.2 Nausea with vomiting, unspecified; R10.9 Unspecified abdominal pain; F17.210 Nicotine dependence, cigarettes, uncomplicated; F12.988 Cannabis use, unspecified with other cannabis-induced disorder
CPT/HCPCS: 36415; 80053; 80307; 81003; 82962; 83690; 84703; 85025; 86780; 87086; 87389; 87491; 87591; 93005; 93010; 99285-25; J0131; U0003

== ENCOUNTER 2020-05-16 10:30 | Emergency (ER) | payer OTHER ==
[2020-05-16] MEDS ORDERED: SODIUM CHLORIDE 1,000 ML IV STA (10:41)
[2020-05-16] MEDS ORDERED: METOCLOPRAMIDE HCL INJECTION 10 MG/2 ML VIAL IVPB ONE (10:41)
[2020-05-16] MEDS ORDERED: METOCLOPRAMIDE HCL INJECTION 10 MG/2 ML VIAL ONE (10:43)
[2020-05-16 10:50] VITALS: TEMP 98.2; BMI 28.0
[2020-05-16 11:12] LABS: BASO % 0.8 % (0-2.0); EOS % 0.5 % (0-4.5); HEMOGLOBIN 11.6 GM/dL (10.7-15.3); LYMPH % 16.5 % (8-40); MCH 28.9 pg (25.7-33.7); MCHC 33.3 g/dl (32.0-36.0); MEAN PLT VOLUME 8.9 fl (7.5-11.1); MONO % 6.2 % (3.8-10.2); PLATELET COUNT 280 K/MM3 (134-434); RBC 4.03 M/mm3 (3.60-5.2); RDW 15.3 % (11.6-15.6)
[2020-05-16] MEDS ORDERED: ACETAMINOPHEN INJECTION 100 ML IVPB ONE (11:16)
[2020-05-16] MEDS ORDERED: ACETAMINOPHEN 1000 MG/100 ML VIAL (NON FORMULARY) IVPB ONE (11:24)
[2020-05-16 11:26] LABS: BLOOD UREA NITROGEN 7.1 mg/dL (7-18)
[2020-05-16 11:27] LABS: ALBUMIN 3.3 g/dl (3.4-5.0)
[2020-05-16 11:29] LABS: CREATININE 0.5 mg/dL (0.55-1.3)
[2020-05-16 11:31] LABS: BILIRUBIN,TOTAL 0.3 mg/dL (0.2-1); TOT PROT 7.9 g/dl (6.4-8.2)
[2020-05-16 11:36] LABS: POTASSIUM 3.6 mmol/L (3.5-5.1)
[2020-05-16] MEDS ORDERED: ONDANSETRON 4 MG/2 ML VIAL IVPUSH ONE (12:51)
[2020-05-16] MEDS ORDERED: ONDANSETRON 4 MG/2 ML VIAL ONE (12:53)
[2020-05-16 12:59] LABS: EPI CELLS >36 /uL (0-25.1); HYALINE CASTS 20 /uL (0-3.1); PH,URINE 8.5 (5.0-8.0); URINE APPEARANCE TURBID; URINE BACTERIA 4887 /uL (0-1359); URINE BILIRUBIN NEGATIVE (NEGATIVE); URINE COLOR YELLOW; URINE GLUCOSE (UA) NEGATIVE (NEGATIVE); URINE KETONE 4+ (NEGATIVE); URINE LEUK ESTERASE NEGATIVE (NEGATIVE); URINE NITRITE NEGATIVE (NEGATIVE); URINE PROTEIN 2+ (NEGATIVE); URINE RBC 10 /uL (0-23.9)
[2020-05-16 13:05] LABS: URINE BARBITURATES NEGATIVE ng/ml (CUTOFF=200)
[2020-05-16 13:06] LABS: COCAINE, UR NEGATIVE ng/ml (CUTOFF=300); OPIATES, URI NEGATIVE ng/ml (CUTOFF=300); PHENCYCLIDINE,URINE NEGATIVE ng/ml (CUTOFF=25); URINE BENZODIAZEPINES NEGATIVE ng/ml (CUTOFF=200)
[2020-05-16 13:09] LABS: METHADONE, UR NEGATIVE ng/ml (CUTOFF=300); URINE AMPHETAMINES NEGATIVE ng/ml (CUTOFF=500)
[2020-05-16 13:57] VITALS: BP 121/74; PULSE 72
[2020-05-16 15:31] LABS: URINE WBC 276.1 /uL (0-25.8)
== END 2020-05-16 14:05 | disposition home or self-care (01) ==
LOC: JER 10:30
PROC: 3E0333Z Introduction of Anti-inflammatory into Peripheral Vein, Percutaneous Approach (ICD-10-PCS; principal; 2020-05-16)
PROC: 3E033GC Introduction of Other Therapeutic Substance into Peripheral Vein, Percutaneous Approach (ICD-10-PCS; 2020-05-16)
PROC: 3E033GC Introduction of Other Therapeutic Substance into Peripheral Vein, Percutaneous Approach (ICD-10-PCS; 2020-05-16)
PROC: 3E0337Z Introduction of Electrolytic and Water Balance Substance into Peripheral Vein, Percutaneous Approach (ICD-10-PCS; 2020-05-16)
DX: O21.1 Hyperemesis gravidarum with metabolic disturbance (principal); F12.90 Cannabis use, unspecified, uncomplicated; R82.71 Bacteriuria
CPT/HCPCS: 36415; 76815; 80053; 80307; 81003; 85025; 87086; 99284-25; J0131

== ENCOUNTER 2020-05-17 00:01 | Emergency (ER) | payer OTHER ==
[2020-05-17 00:13] VITALS: BMI 28.0
[2020-05-17] MEDS ORDERED: ONDANSETRON 4 MG/2 ML VIAL IVPUSH ONE ×2 (00:23→01:55)
[2020-05-17] MEDS ORDERED: ONDANSETRON 4 MG/2 ML VIAL ONE ×2 (00:30→02:13)
[2020-05-17] MEDS ORDERED: SODIUM CHLORIDE 1,000 ML IV SCH (00:30)
[2020-05-17 00:55] LABS: HEMATOCRIT 33.3 % (32.4-45.2); HEMOGLOBIN 10.9 GM/dL (10.7-15.3); LYMPH % 7.3 % (8-40); MCH 28.7 pg (25.7-33.7); MCHC 32.7 g/dl (32.0-36.0); MEAN CELL VOLUME 87.7 fl (80-96); MEAN PLT VOLUME 8.9 fl (7.5-11.1); MONO % 3.4 % (3.8-10.2); NEUT % 89.3 % (42.8-82.8); PLATELET COUNT 271 K/MM3 (134-434); RDW 15.1 % (11.6-15.6); WHITE BLOOD COUNT 19.1 K/mm3 (4.0-10.0)
[2020-05-17 01:23] LABS: POTASSIUM 3.5 mmol/L (3.5-5.1)
[2020-05-17 01:25] LABS: CALCIUM 9.7 mg/dL (8.5-10.1)
[2020-05-17 01:26] LABS: ALBUMIN 3.2 g/dl (3.4-5.0); BLOOD UREA NITROGEN 6.3 mg/dL (7-18)
[2020-05-17 01:29] LABS: CREATININE 0.5 mg/dL (0.55-1.3)
[2020-05-17 01:30] LABS: BILIRUBIN,TOTAL 0.3 mg/dL (0.2-1); TOT PROT 7.6 g/dl (6.4-8.2)
[2020-05-17 02:52] LABS: EPI CELLS >36 /uL (0-25.1); HYALINE CASTS 59 /uL (0-3.1); PH,URINE 5.5 (5.0-8.0); URINE APPEARANCE TURBID; URINE BACTERIA 6160 /uL (0-1359); URINE BILIRUBIN NEGATIVE (NEGATIVE); URINE COLOR YELLOW; URINE GLUCOSE (UA) NEGATIVE (NEGATIVE); URINE KETONE 4+ (NEGATIVE); URINE LEUK ESTERASE 1+ (NEGATIVE); URINE NITRITE NEGATIVE (NEGATIVE); URINE PROTEIN 1+ (NEGATIVE); URINE RBC 4 /uL (0-23.9); URINE UROBILINOGEN 0.2 mg/dL (0.2-1.0); URINE WBC 51 /uL (0-25.8)
[2020-05-17] MEDS ORDERED: LACTATED RINGERS SOLUTION 1000 ML INFUS.BAG IV ONE (05:36)
[2020-05-17] MEDS ORDERED: CEFTRIAXONE 1 GM/50 ML BAG ONE (05:50)
[2020-05-17 11:19] VITALS: BP 126/69; PULSE 83; TEMP 97.1
== END 2020-05-17 10:55 | disposition short-term general hospital (02) ==
LOC: JER 00:01
PROC: 3E033NZ Introduction of Analgesics, Hypnotics, Sedatives into Peripheral Vein, Percutaneous Approach (ICD-10-PCS; principal; 2020-05-17)
PROC: 3E033GC Introduction of Other Therapeutic Substance into Peripheral Vein, Percutaneous Approach (ICD-10-PCS; 2020-05-17)
PROC: 3E03329 Introduction of Other Anti-infective into Peripheral Vein, Percutaneous Approach (ICD-10-PCS; 2020-05-17)
DX: R11.2 Nausea with vomiting, unspecified (principal)
CPT/HCPCS: 36415; 80053; 81003; 85025; 87086; 99285-25; C9803; U0003; U0005